=== PATIENT | male | born 1985 | race Hispanic/Latino ===

== ENCOUNTER 2020-01-14 10:19 | Emergency (ER) | payer SELFPAY ==
[2020-01-14] MEDS ORDERED: VISTARIL25 MG PO (10:50)
[2020-01-14 11:02] VITALS: BP 147/73
== END 2020-01-14 11:02 | disposition home or self-care (01) | DRG 156 ==
LOC: ED 10:19
DX: J39.2 Other diseases of pharynx (principal); G47.9 Sleep disorder, unspecified

== ENCOUNTER 2020-02-11 | Emergency (ER) | payer OTHER ==
[~2020-02-11] MED LIST: VISTARIL25 MG PO
[2020-02-11 21:56] LABS: HEMATOCRIT 41.1 % (39.0-50.0); HEMOGLOBIN 13.9 g/dl (14.0-18.0); IMMATURE GRANULOCYTES 0.3 % (0.0-5.0); MEAN CELL VOLUME 92.6 fL CALC (80.0-100.0); MEAN CORPUSCULAR HGB 31.3 pG CALC (26.0-32.0); MEAN CORPUSCULAR HGB CONC 33.8 g/dL CAL (32.0-36.0); NEUT# 6.92 thou/uL (1.82-7.42); RED BLOOD COUNT 4.44 mill/uL (4.70-6.10)
[2020-02-11 22:12] LABS: ALBUMIN 4.3 g/dL (3.2-5.0); ALKALINE PHOSPHATASE 68 u/l (38-126); ANION GAP 12 (6-22 (CALC)); BILIRUBIN, TOTAL 0.4 mg/dL (0.0-1.4); BUN 11 mg/dL (9-20); BUN/CREATININE RATIO 15 (12-20 (CALC)); CARBON DIOXIDE 24 mmol/l (22-30); CHLORIDE 105 mmol/l (95-108); CPK 275 u/l (52-200); CREATININE 0.7 mg/dL (0.7-1.3); GFR > 60 ML/MIN (>=60 (CALC)); GFR FOR AFR.AMER. > 60 ML/MIN (>=60 (CALC)); MAGNESIUM 2.2 mg/dL (1.6-2.3); POTASSIUM 3.7 mmol/l (3.5-5.1); SGOT/AST 28 u/l (17-59); SODIUM 137 mmol/l (137-146); TOTAL PROTEIN 7.8 g/dL (6.3-8.2)
[2020-02-11 22:21] LABS: MYOGLOBIN 52 ng/mL (0 - 121)
== END 2020-02-12 01:35 | disposition home or self-care (01) | DRG 607 ==
PROVIDERS: Family Medicine
DX: S40.261A Insect bite (nonvenomous) of right shoulder, initial encounter (principal); W57.XXXA Bitten or stung by nonvenomous insect and other nonvenomous arthropods, initial encounter; M79.10 Myalgia, unspecified site